=== PATIENT | male | born 1955 | race Caucasian/White ===

== ENCOUNTER 2023-05-22 16:40 | Emergency (ER) | payer BC, MEDICAID ==
[~2023-05-22] VITALS: Ht 177.8 cm; Wt 79.0 kg
[2023-05-22 16:48] VITALS: O2SAT 99
[2023-05-22 18:15] LABS: CLARITY URINE CLEAR (CLEAR); COLOR URINE YELLOW (YELLOW); GLUCOSE URINE 3+ (NEGATIVE); KETONES URINE NEGATIVE (NEGATIVE); LEUKOCYTE ESTERASE URINE NEGATIVE (NEGATIVE); NITRITE URINE NEGATIVE (NEGATIVE); OCCULT BLOOD URINE NEGATIVE (NEGATIVE); PH URINE 5.5 (4.5-8.0); PROTEIN URINE NEGATIVE (NEGATIVE); SPECIFIC GRAVITY URINE 1.024 (1.005-1.030); UROBILINOGEN URINE 0.2 E.U./dL (0.2-1.0)
[2023-05-22 18:19] LABS: BASOPHILS % 0.3 % (0.0-2.0); DIFFERENTIAL COMMENT 0; EOSINOPHILS % 1.4 % (0.0-5.0); HEMATOCRIT. 40.2 % (42.0-52.0); HEMOGLOBIN. 13.4 g/dL (14.0-18.0); LYMPHOCYTES % 18.6 % (20.0-50.0); MEAN CORPUSCULAR HEMOGLOBIN 25.6 pg (28.0-32.0); MEAN CORPUSCULAR HGB CONC 33.3 g/dL (31.0-37.0); MEAN CORPUSCULAR VOLUME 76.8 fL (80.0-94.0); MEAN PLATELET VOLUME 9.5 fl (7.4-10.4); MONOCYTES % 6.4 % (2.0-8.0); NEUTROPHILS % 73.3 % (40.0-76.0); PLATELET 216 x1000/uL (130-400); RED BLOOD CELL COUNT 5.24 mill/uL (4.7-6.1); RED CELL DISTRIBUTION WIDTH 14.5 % (11.6-14.6); WHITE BLOOD COUNT 9.3 x1000/uL (4.5-11.0)
[2023-05-22 18:19] LABS: RBC URINE NONE SEEN /hpf (0-2); WBC URINE NONE SEEN /hpf (0-2); YEAST URINE NONE SEEN
[2023-05-22 18:25] LABS: CHLORIDE 100 mEq/L (98-107); INDEX HEMOLYSI 1 (1-3); INDEX ICTERIC 1 (1-4); INDEX LIPEMIC 1 (1-3); POTASSIUM 4.1 mEq/L (3.5-5.1); SODIUM 133 mEq/L (136-145)
[2023-05-22 18:35] LABS: BACTERIA URINE TRACE; SQUAMOUS EPITHELIAL CELL URINE FEW /lpf (RARE/1+)
[2023-05-22 18:38] LABS: BETA HYDROXYBUTYRATE 0.1 mMol/L (0.0-0.3); CARBON DIOXIDE 26 mEq/L (21-32); CREATININE 0.7 mg/dL (0.6-1.3); GLUCOSE 313 mg/dL (70-105); TROPONIN I HIGH SENSITIVITY 8 ng/L (<78); UREA NITROGEN BLOOD 15 mg/dL (7-21)
[2023-05-22 19:25] VITALS: BP 121/78; PULSE 79; RESP 16; TEMP 98.5
== END 2023-05-22 19:54 | disposition home or self-care (01) ==
LOC: ER 16:40
DX: E11.65 Type 2 diabetes mellitus with hyperglycemia (principal); R53.1 Weakness; R42 Dizziness and giddiness
CPT/HCPCS: 36415; 71045; 80048; 81003; 82010; 82962; 84484; 85025; 93005; 99285